=== PATIENT | female | born 1995 | race Caucasian/White ===

== ENCOUNTER 2017-01-17 13:49 | Emergency (ER) | payer MEDICAID, OTHER ==
[~2017-01-17] VITALS: Ht 152.4 cm; Wt 56.0 kg
[~2017-01-17 13:49] MED LIST: IBUP600 PO; PERI8.6T PO
[2017-01-17 13:55] VITALS: BP 116/70; PULSE 104; RESP 20; TEMP 98.9; O2SAT 98
[2017-01-17] MEDS ORDERED: SODIUM CHLOR 0.9% 1000 ML INJ 1,000 ML IV SCH (14:09)
[2017-01-17] MEDS ORDERED: methylPREDNISolone SOD SUCC 125 MG/2 ML VIAL IVP ONE (14:15)
[2017-01-17] MEDS ORDERED: diphenhydrAMINE HCL 50 MG/ML VIAL IVP ONE (14:15)
[2017-01-17] MEDS ORDERED: FAMOTIDINE 20 MG/2 ML VIAL IV PUSH ONE (14:15)
[2017-01-17] MEDS ORDERED: SODIUM CHLORIDE 0.9% FLUSH 10 ML FLUSH IV FLUSH PRN (14:15)
[2017-01-17 14:24] VITALS: RESP 16; O2SAT 100
--- NOTE | 2017-01-17 16:04 | PD ---
HPI Chief Complaint: Allergic/Adverse Reaction Time Seen by Provider: 14:09 Travel History International Travel<30 days: No Contact w/Intl Traveler<30days: No Traveled to known affect area: No History of Present Illness HPI Patient is a 21 year old female who comes in complaining of facial swelling and hives. She says she was eat a fruit salad with multiple berries in it when this started. She has swelling to her eyes and her top lip. She has hives to her arms, neck and trunk that are itchy. She denies any swelling inside of her mouth or any difficulty breathing or swallowing. PFSH Past Medical History Asthma: Yes Cancer: No Cardiovascular Problems: No COPD: No Cerebrovascular Accident: No Diabetes: Yes (HYPOGLYCEMIA) Genitourinary: No Headaches: Yes (migraines) Immune Disorder: No Implanted Vascular Access Dvce: Yes Musculoskeletal: No Neurologic: Yes Psychiatric: No Reproductive: Yes (HPV) Respiratory: Yes (ASTHMA ) Immunizations Current: Yes Migraines: Yes Myocardial Infarction: No Seizures: No Sleep Apnea: No ?: Not LMP: NOW : 1 Para: 1 Past Surgical History Body Medical Devices: Screws in R leg Social History Alcohol Use: No Tobacco Use: No Substance Use: No Allergies-Medications (Allergen,Severity, Reaction): Coded Allergies: Contrast Media (Verified Allergy, Severe, HIVES, 05/12/16) Darvocet-N 100 (Verified Allergy, Severe, HIVES, 01/17/17) Morphine (Verified Allergy, Severe, SWELLING, 01/17/17) Compazine (Verified Allergy, Intermediate, ALTERED MENTAL STATUS, 01/17/17) Latex (Verified Allergy, Intermediate, Rash, 05/12/16) Reported Meds & Prescriptions Reported Meds & Active Scripts Active No Active Prescriptions or Reported Medications Review of Systems Except as stated in HPI: all other systems reviewed are Neg General / Constitutional: No: Fever Eyes: No: Blurred Vision HENT: No: Headaches, Lightheadedness, Sore Throat Cardiovascular: No: Chest Pain or Discomfort Respiratory: No: Shortness of Breath Gastrointestinal: No: Nausea, Vomiting Skin: Positive Rash, Positive Itching, Positive Hives Neurologic: No: Weakness, Dizziness Physical Exam Narrative GENERAL: Awake and alert, in no acute distress. SKIN: Focused skin assessment warm/dry. Urticaria on the arms and neck. HEAD: Atraumatic. Normocephalic. EYES: Pupils equal and round. No scleral icterus. ENT: Mucous membranes pink and moist. Large swelling of the top lip. No swelling of the tongue, tonsils or pharynx. NECK: Trachea midline. No JVD. CARDIOVASCULAR: Regular rate and rhythm. No murmur appreciated. RESPIRATORY: No accessory muscle use. Clear to auscultation. Breath sounds equal bilaterally. MUSCULOSKELETAL: No obvious deformities. No clubbing. No cyanosis. No edema. NEUROLOGICAL: Awake and alert. No obvious cranial nerve deficits. Motor grossly within normal limits. Normal speech. PSYCHIATRIC: Appropriate mood and affect; insight and judgment normal. Data Data Last Documented VS Vital Signs Date Time Temp Pulse Resp B/P Pulse Ox O2 Delivery O2 Flow Rate FiO2 01/17/17 14:24 16 100 Room Air 01/17/17 14:05 88 01/17/17 13:55 98.9 116/70 Orders Ecg Monitoring (01/17/17 14:09) Iv Access Insert/Monitor (01/17/17 14:09) Oximetry (01/17/17 14:09) Diphenhydramine Inj (Benadryl Inj) (01/17/17 14:15) Methylprednisolone So Succ Inj (Solumedr (01/17/17 14:15) Famotidine Inj (Pepcid Inj) (01/17/17 14:15) Sodium Chlor 0.9% 1000 Ml Inj (Ns 1000 M (01/17/17 14:09) Sodium Chloride 0.9% Flush (Ns Flush) (01/17/17 14:15) MDM Medical Decision Making Medical Screen Exam Complete: Yes Emergency Medical Condition: Yes Differential Diagnosis allergic reaction vs anaphylaxis vs atopic dermatitis Narrative Course Patient is a 21 year old female who comes in complaining of hives and swelling of her face. Exam shows large swelling of the top lip and the eyelids as well as urticaria. Patient given Solumedrol, Benadryl, Famotidine. Observed in the ED with improvement of her symptoms. She never had any airway compromise. Will be discharged with prescription for Prednisone. Patient's sister has an allergy to strawberries. I told the patient this is likely what she is reacting to and to avoid them in the future. She is also advised to be careful with other berries. Advised to follow up with a primary care doctor. Advised to continue Benadryl as needed. Advised to return immediately for any worsening symptoms. Diagnosis Primary Impression: Allergic reaction Qualified Code: T78.40XA - Allergic reaction, initial encounter Patient Instructions: General Allergic Reaction (ED), General Instructions Additional Instructions: Avoid berries in the future, especially strawberries. Take Benadryl as needed for itching. Start the steroids tomorrow as you had the first dose today. Return to the ED as needed for any worsening symptoms, especially if you feel any breathing difficulties. Follow up with a primary care doctor. Scripts Famotidine 20 Mg Tab20 Mg PO BID #10 TAB Ref 0 Prov:Katherine Trejo MD 01/17/17 Prednisone 50 Mg Tab50 Mg PO DAILY 4 Days Ref 0 Prov:Katherine Trejo MD 01/17/17 Disposition: 01 DISCHARGE HOME Condition: Stable Katherine Trejo MD January 17, 2017 16:04
[2017-01-17] MEDS ORDERED: FAMO20TA2 PO (16:56)
[2017-01-17] MEDS ORDERED: PRED50 PO (16:56)
== END 2017-01-17 17:08 | disposition home or self-care (01) ==
LOC: NEPD 13:49
DX: T78.40XA Allergy, unspecified, initial encounter (principal); Z87.09 Personal history of other diseases of the respiratory system; Z86.69 Personal history of other diseases of the nervous system and sense organs
CPT/HCPCS: 96361; 96374; 96375; 99284; J1200; J2930; J7030

== ENCOUNTER 2017-01-28 08:45 | Emergency (ER) | payer MEDICAID, OTHER ==
[~2017-01-28] VITALS: Ht 152.4 cm; Wt 44.5 kg
[~2017-01-28 08:45] MED LIST changes: +FAMO20TA2 PO; -IBUP600 PO; -PERI8.6T PO; +PRED50 PO
[2017-01-28 08:46] VITALS: BP 122/81; PULSE 107; RESP 18; TEMP 97.9; O2SAT 99
[2017-01-28 09:10] VITALS: O2SAT 98
[2017-01-28] MEDS ORDERED: SODIUM CHLORIDE 0.9% FLUSH 10 ML FLUSH IV FLUSH PRN (09:15)
--- NOTE | 2017-01-28 09:22 | PD ---
HPI Chief Complaint: Abdominal Pain Time Seen by Provider: 09:16 Travel History International Travel<30 days: No Contact w/Intl Traveler<30days: No Traveled to known affect area: No History of Present Illness HPI 21-year-old female with history of hypoglycemia, previous allergic reactions to different medications and latex, presents to the ER today because she woke up this morning and noticed hives on her legs and body, started having a right sided upper quadrant abdominal pain which she currently states is a 5 out of 10 , nausea, vomiting. She denies any diarrhea, fevers, or other symptoms. She denies any chest pains or shortness of breath. She denies any new medications or new foods. Modifying Factors: None Associated Signs & Symptoms: Right upper quadrant abdominal pains, nausea and vomiting, hives Risk Factors: None PFSH Past Medical History Asthma: Yes Cancer: No Cardiovascular Problems: No COPD: No Cerebrovascular Accident: No Diabetes: Yes (HYPOGLYCEMIA) Patient Takes Glucophage: No Genitourinary: No Headaches: Yes (migraines) Immune Disorder: No Implanted Vascular Access Dvce: Yes Musculoskeletal: No Neurologic: Yes Psychiatric: No Reproductive: Yes (HPV) Respiratory: Yes (ASTHMA ) Immunizations Current: Yes Migraines: Yes Myocardial Infarction: No Seizures: No Sleep Apnea: No ?: Not LMP: ONE WEEK AGO : 1 Para: 1 Past Surgical History Body Medical Devices: Screws in R leg Social History Alcohol Use: Yes (occ) Tobacco Use: Yes (1/2 pack a day) Substance Use: No Allergies-Medications (Allergen,Severity, Reaction): Coded Allergies: Contrast Media (Verified Allergy, Severe, HIVES, 01/28/17) Darvocet-N 100 (Verified Allergy, Severe, HIVES, 01/28/17) Morphine (Verified Allergy, Severe, SWELLING, 01/28/17) Compazine (Verified Allergy, Intermediate, ALTERED MENTAL STATUS, 01/28/17) Latex (Verified Allergy, Intermediate, Rash, 01/28/17) Reported Meds & Prescriptions Reported Meds & Active Scripts Active No Active Prescriptions or Reported Medications Review of Systems Except as stated in HPI: all other systems reviewed are Neg Physical Exam Narrative GENERAL: Well-developed young white female patient in mild distress. Awake and oriented 3. SKIN: Focused skin assessment warm/dry. Notable for urticaria on her legs. HEAD: Atraumatic. Normocephalic. EYES: Pupils equal and round. No scleral icterus. No injection or drainage. ENT: No nasal bleeding or discharge. Mucous membranes pink and moist. NECK: Trachea midline. No JVD. CARDIOVASCULAR: Regular rate and rhythm. No murmur appreciated. RESPIRATORY: No accessory muscle use. Clear to auscultation. Breath sounds equal bilaterally. GASTROINTESTINAL: Abdomen soft, right upper quadrant tenderness without guarding or rebound, right pelvic tenderness, nondistended. Hepatic and splenic margins not palpable. Positive Turner sign. MUSCULOSKELETAL: No obvious deformities. No clubbing. No cyanosis. No edema. NEUROLOGICAL: Awake and alert. No obvious cranial nerve deficits. Motor grossly within normal limits. Normal speech. PSYCHIATRIC: Appropriate mood and affect; insight and judgment normal. Data Data Last Documented VS Vital Signs Date Time Temp Pulse Resp B/P Pulse Ox O2 Delivery O2 Flow Rate FiO2 01/28/17 12:37 98.4 01/28/17 11:39 77 16 104/58 97 Room Air Orders Complete Blood Count With Diff (01/28/17 09:06) Comprehensive Metabolic Panel (01/28/17 09:06) Lipase (01/28/17 09:06) Urinalysis - C+S If Indicated (01/28/17 09:06) Iv Access Insert/Monitor (01/28/17 09:06) Ecg Monitoring (01/28/17 09:06) Oximetry (01/28/17 09:06) Sodium Chloride 0.9% Flush (Ns Flush) (01/28/17 09:15) Ed Urine Pregnancytest Poc (01/28/17 09:06) Sodium Chlor 0.9% 1000 Ml Inj (Ns 1000 M (01/28/17 09:30) Ondansetron Inj (Zofran Inj) (01/28/17 09:30) Us Abdomen Gallbladder (01/28/17 09:16) Diphenhydramine Inj (Benadryl Inj) (01/28/17 09:30) Methylprednisolone So Succ Inj (Solumedr (01/28/17 09:30) Ct Abd/Pel W/O Iv Contrast (01/28/17 11:01) Gc And Chlamydia Pcr (01/28/17 13:01) Wet Prep Profile (01/28/17 13:01) Metronidazole 500 Mg Inj (Flagyl 500 Mg (01/28/17 13:15) Ceftriaxone Inj (Rocephin Inj) (01/28/17 13:15) Doxycycline Inj (Vibramycin Inj) (01/28/17 13:15) Labs Laboratory Tests Test 01/28/17 01/28/17 01/28/17 09:15 09:18 13:07 Urine Color YELLOW Urine Turbidity CLEAR Urine pH 7.0 Urine Specific Baring 1.018 Urine Protein TRACE mg/dL Urine Glucose (UA) NEG mg/dL Urine Ketones NEG mg/dL Urine Occult Blood NEG Urine Nitrite NEG Urine Bilirubin NEG Urine Urobilinogen LESS THAN 2.0 MG/DL Urine Leukocyte Esterase NEG Urine RBC LESS THAN 1 /hpf Urine WBC 2 /hpf Urine Squamous Epithelial 3 /hpf Cells Urine Hyaline Casts 1 /lpf Urine Mucus FEW /lpf Microscopic Urinalysis Comment CULT NOT INDICATED White Blood Count 20.4 TH/MM3 Red Blood Count 4.93 MIL/MM3 Hemoglobin 15.4 GM/DL Hematocrit 45.9 % Mean Corpuscular Volume 93.1 FL Mean Corpuscular Hemoglobin 31.3 PG Mean Corpuscular Hemoglobin 33.6 % Concent Red Cell Distribution Width 13.6 % Platelet Count 279 TH/MM3 Mean Platelet Volume 9.7 FL Neutrophils (%) (Auto) 85.2 % Lymphocytes (%) (Auto) 10.8 % Monocytes (%) (Auto) 3.8 % Eosinophils (%) (Auto) 0.1 % Basophils (%) (Auto) 0.1 % Neutrophils # (Auto) 17.4 TH/MM3 Lymphocytes # (Auto) 2.2 TH/MM3 Monocytes # (Auto) 0.8 TH/MM3 Eosinophils # (Auto) 0.0 TH/MM3 Basophils # (Auto) 0.0 TH/MM3 CBC Comment DIFF FINAL Differential Comment Sodium Level 139 MEQ/L Potassium Level 4.2 MEQ/L Chloride Level 105 MEQ/L Carbon Dioxide Level 26.0 MEQ/L Anion Gap 8 MEQ/L Blood Urea Nitrogen 8 MG/DL Creatinine 0.82 MG/DL Estimat Glomerular Filtration 87 ML/MIN Rate Random Glucose 84 MG/DL Calcium Level 9.3 MG/DL Total Bilirubin 0.6 MG/DL Aspartate Amino Transf 16 U/L (AST/SGOT) Alanine Aminotransferase 21 U/L (ALT/SGPT) Alkaline Phosphatase 68 U/L Total Protein 6.8 GM/DL Albumin 4.0 GM/DL Lipase 103 U/L Clue Cells (Wet Prep) NONE SEEN Vaginal Trichomonas (Wet Prep) NONE SEEN Vaginal Yeast (Wet Prep) NONE SEEN MDM Medical Decision Making Medical Screen Exam Complete: Yes Emergency Medical Condition: Yes Medical Record Reviewed: Yes Interpretation(s) Laboratory Tests Test 01/28/17 01/28/17 09:15 09:18 Urine Mucus FEW /lpf (OCC) White Blood Count 20.4 TH/MM3 (4.0-11.0) Hemoglobin 15.4 GM/DL (11.6-15.3) Neutrophils (%) (Auto) 85.2 % (16.0-70.0) Neutrophils # (Auto) 17.4 TH/MM3 (1.8-7.7) Estimat Glomerular Filtration 87 ML/MIN (>89) Rate Last 24 hours Impressions Gall Bladder Ultrasound 01/28/17915 Signed Impressions: Service Date/Time: Thursday, January 28, 2017 10:33 - CONCLUSION: 1. Stable mild hepatomegaly. 2. Otherwise, unremarkable ultrasound examination of the right upper quadrant. Specifically, no sonographic evidence for cholelithiasis or acute cholecystitis. Gaurav Jacques MD Differential Diagnosis Right upper quadrant abdominal pains, nausea and vomiting, rashallergic reaction versus gastroenteritis versus cholecystitis versus hepatitis versus dehydration versus metabolic issues Narrative Course Ultrasound did not show any signs of significant cholecystitis. Lab work shows significant leukocytosis. CT was ordered for further evaluation and it shows a right adnexal fluid collection. On reevaluation, patient is mildly tender in the right pelvic area and a pelvic exam was done which shows suman pus draining from the cervical os concerning for cervicitis, PID, and suspicion of TOA. IV antibiotics were ordered for the patient. GC cultures were sent. Case was discussed with Dr. Cisneros who is covering for OB ER and she states that the patient can be followed up very closely with Dr. Díaz who is currently on- call today. Further antibiotic treatment with doxycycline and Flagyl recommended. Return for any worsening in pain, fevers, or new symptoms as needed. The plan has been discussed with her and she states understanding. Diagnosis Primary Impression: PID (acute pelvic inflammatory disease) Referrals: Libertad Thomson MD 3 days Med/Other Pt SpecificInfo: Prescription(s) given Scripts Ondansetron Odt (Zofran Odt)4 Mg Tab4 Mg SL Q6HR PRN (Nausea/Vomiting) #7 TAB Ref 0 Prov:Mesha Le MD 01/28/17 Doxycycline Hyclate 100 Mg [id number] Mg PO BID #28 CAP Ref 0 Prov:Mesha Le MD 01/28/17 Metronidazole (Flagyl)500 Mg [id number] Mg PO BID 14 Days Ref 0 Prov:Mesha Le MD 01/28/17 Disposition: 01 DISCHARGE HOME Condition: Stable Mesha Le MD Jan 28, 2017 09:22
[2017-01-28] MEDS ORDERED: SODIUM CHLOR 0.9% 1000 ML INJ 1,000 ML IV ONE (09:30)
[2017-01-28] MEDS ORDERED: ONDANSETRON HCL 4 MG/2 ML VIAL IV PUSH ONE (09:30)
[2017-01-28] MEDS ORDERED: methylPREDNISolone SOD SUCC 125 MG/2 ML VIAL IV PUSH ONE (09:30)
[2017-01-28] MEDS ORDERED: diphenhydrAMINE HCL 50 MG/ML VIAL IV PUSH ONE (09:30)
[2017-01-28 09:44] LABS: AUTOMATED NEUTROPHIL # 17.4 TH/MM3 (1.8-7.7); BASOPHIL % 0.1 % (0.0-2.0); EOSINOPHIL % 0.1 % (0.0-4.0); HEMATOCRIT 45.9 % (35.0-46.0); HEMO FLAGS DIFF FINAL; LYMPH % 10.8 % (9.0-44.0); LYMPHOCYTE # 2.2 TH/MM3 (1.0-4.8); MEAN CELL VOLUME 93.1 FL (80.0-100.0); MEAN CORPUSCULAR HEMOGLOBIN 31.3 PG (27.0-34.0); MEAN CORPUSCULAR HGB CONC 33.6 % (32.0-36.0); MONO % 3.8 % (0.0-8.0); NEUT % 85.2 % (16.0-70.0); PLATELET COUNT 279 TH/MM3 (150-450); RED BLOOD COUNT 4.93 MIL/MM3 (4.00-5.30); RED CELL DISTRIBUTION WIDTH 13.6 % (11.6-17.2); WHITE BLOOD COUNT 20.4 TH/MM3 (4.0-11.0)
[2017-01-28 09:49] LABS: BLOOD, URINE NEG (NEG); COMMENT (UR) CULT NOT INDICATED; CULTURE IF INDICATED CULT NOT INDICATED; GLUCOSE,URINE NEG (NEG); HYALINE CAST, URINE 1 /lpf (RARE); KETONE, URINE NEG (NEG); MUCUS URINE FEW /lpf (OCC); NITRITE,URINE NEG (NEG); SQUAMOUS EPITHELIAL CELL URINE 3 /hpf (0-5); URINE COLOR YELLOW (YELLW/STRAW)
[2017-01-28 09:53] LABS: ANION GAP 8 MEQ/L (5-15); AST (GOT) 16 U/L (15-37); BLOOD UREA NITROGEN 8 MG/DL (7-18); CHLORIDE 105 MEQ/L (98-107); GLOMERULAR FILTRATION RATE 87 ML/MIN (>89); POTASSIUM 4.2 MEQ/L (3.5-5.1); SODIUM (NA) 139 MEQ/L (136-145)
[2017-01-28 09:55] LABS: ALT (GPT) 21 U/L (10-53)
[2017-01-28 09:56] LABS: ALKALINE PHOSPHATASE 68 U/L (45-117); TOTAL BILIRUBIN ADULT 0.6 MG/DL (0.2-1.0)
--- NOTE | 2017-01-28 10:57 | RADRPT ---
EXAM DATE/TIME: 01/28/2017 10:33 [facility] COMPARISON: US ABDOMEN - GALLBLADDER, March 21, 2016, 23:26. INDICATIONS : Right upper quadrant pain. MEDICAL HISTORY : HPV. Right upper quadrant pain. Diabetes. SURGICAL HISTORY : Bilateral knee surgery. ENCOUNTER: Subsequent ACUITY: 1 day PAIN SCORE: 4/10 LOCATION: Right upper quadrant MEASUREMENTS: LIVER: 18.1 cm length COMMON DUCT: 4 mm RIGHT KIDNEY: 10.5 x 3.7 x 4.3 cm FINDINGS: LIVER: Normal echotexture without focal lesion or ductal dilatation. COMMON DUCT: No intraluminal mass or stone visualized. GALLBLADDER: Contains no stones, demonstrates no wall thickening or pericholecystic fluid. PANCREAS: The visualized portions are within normal limits. RIGHT KIDNEY: No evidence of hydronephrosis, stone, or mass. CONCLUSION: 1. Stable mild hepatomegaly. 2. Otherwise, unremarkable ultrasound examination of the right upper quadrant. Specifically, no sonog raphic evidence for cholelithiasis or acute cholecystitis. Gaurav Jacques MD on January 28, 2017 at 10:53 Board Certified Radiologist. This report was verified electronically.
[2017-01-28 11:39] VITALS: BP 104/58; PULSE 77; RESP 16; O2SAT 97
--- NOTE | 2017-01-28 12:09 | RADRPT ---
EXAM DATE/TIME: 01/28/2017 11:29 [facility] COMPARISON: CT ABDOMEN & PELVIS W/O CONTRAST, March 21, 2016, 21:09. INDICATIONS : Right lower quadrant pain; nausea and vomitting ORAL CONTRAST: No oral contrast ingested. RADIATION DOSE: 9.96 CTDIvol (mGy) MEDICAL HISTORY : Diabetes mellitus type 1. SURGICAL HISTORY : None. ENCOUNTER: Initial ACUITY: 1 day PAIN SCALE: 3/10 LOCATION: Right lower quadrant TECHNIQUE: Volumetric scanning of the abdomen and pelvis was performed. Using automated exposure control and ad justment of the mA and/or kV according to patient size, radiation dose was kept as low as reasonably achievable to obtain optimal diagnostic quality images. FINDINGS: The lung bases are clear. Liver, spleen, pancreas and adrenals are unremarkable. There are no renal stones identified. There is no ascites or adenopathy. Bladder is prominent. Endometrium is prominent in a normal size uterus. There is no left adnexal ma ss. There is a 2 cm right adnexal mass. There is no free fluid in the cul-de-sac. Stool is seen throughout the colon. CONCLUSION: 1. There is no free air or obstruction. Stool is seen throughout the colon in a nonspecific fashion. 2. I don't see inflammatory changes. 3. Lack of intravenous oral contrast makes detection of subtle inflammatory processes difficult. 4. A 2.2 cm cystic mass right adnexal region without free fluid. Jordin Wolff MD FACR on January 28, 2017 at 11:42 Board Certified Radiologist. This report was verified electronically.
[2017-01-28 12:37] VITALS: TEMP 98.4
[2017-01-28] MEDS ORDERED: cefTRIAXone INJ 1,000 MG in SODIUM CHLORIDE 0.9% INJ 100 ML IV ONE (13:15)
[2017-01-28] MEDS ORDERED: DOXYCYCLINE INJ 100 MG in SODIUM CHLORIDE 0.9% INJ 100 ML IV ONE (13:15)
[2017-01-28] MEDS ORDERED: metroNIDAZOLE 500 MG INJ 100 ML IV ONE (13:15)
[2017-01-28] MEDS ORDERED: DOXY100C PO (14:07)
[2017-01-28] MEDS ORDERED: ZOFR4TAB3 SL (14:07)
[2017-01-28] MEDS ORDERED: METR-1 PO (14:07)
[2017-01-28 17:39] LABS: CHLAMYDIA PCR NOT DETECTED (NOT DETECT); NEISSERIA PCR NOT DETECTED (NOT DETECT)
== END 2017-01-28 15:06 | disposition home or self-care (01) ==
LOC: NEPE 08:45
DX: N73.9 Female pelvic inflammatory disease, unspecified (principal); R11.2 Nausea with vomiting, unspecified; L23.9 Allergic contact dermatitis, unspecified cause; J45.909 Unspecified asthma, uncomplicated; E11.649 Type 2 diabetes mellitus with hypoglycemia without coma; Z72.0 Tobacco use
CPT/HCPCS: 74176; 76705; 80053; 81001; 83690; 84703; 85025; 87210; 87491; 87591; 96361; 96365; 96367; 96368; 96375; 99285; J0696; J1200; J2405; J2930; J7030

== ENCOUNTER 2017-02-11 09:42 | Emergency (ER) | payer MEDICAID ==
[~2017-02-11] VITALS: Ht 165.1 cm; Wt 44.5 kg
[~2017-02-11 09:42] MED LIST changes: +DOXY100C PO; -FAMO20TA2 PO; +METR-1 PO; -PRED50 PO; +ZOFR4TAB3 SL
[2017-02-11 09:44] VITALS: BP 126/80; PULSE 139; RESP 14; TEMP 98.8; O2SAT 98
[2017-02-11] MEDS ORDERED: FAMOTIDINE 20 MG/2 ML VIAL IV PUSH ONE (10:30)
[2017-02-11] MEDS ORDERED: methylPREDNISolone SOD SUCC 125 MG/2 ML VIAL IVP ONE (10:30)
[2017-02-11] MEDS ORDERED: diphenhydrAMINE HCL 50 MG/ML VIAL IVP ONE (10:30)
[2017-02-11] MEDS ORDERED: SODIUM CHLORIDE 0.9% FLUSH 10 ML FLUSH IV FLUSH PRN (10:30)
[2017-02-11] MEDS ORDERED: EPINEPHrine HCL (1:1000) 1 MG/ML VIAL IM ONE (10:30)
--- NOTE | 2017-02-11 10:30 | PD ---
HPI Chief Complaint: Allergic/Adverse Reaction Time Seen by Provider: 10:12 Travel History International Travel<30 days: No Contact w/Intl Traveler<30days: No Traveled to known affect area: No History of Present Illness HPI 21-year-old female complains of itching rash on the face trunk and extremity. Patient states that she has intermittent itching rash all over the body for the past month. Patient does not know the source of allergic reaction. Patient denies any difficulty in swallowing. Patient denies any chest pain or shortness of breath. Patient states that she had more swelling of the face this morning. Patient denies any abdominal pain. Patient denies any nausea vomiting diarrhea. PFSH Past Medical History Asthma: Yes Cancer: No Cardiovascular Problems: No COPD: No Cerebrovascular Accident: No Diabetes: Yes (HYPOGLYCEMIA) Patient Takes Glucophage: No Diminished Hearing: No Genitourinary: No Headaches: Yes (migraines) Immune Disorder: No Implanted Vascular Access Dvce: Yes Musculoskeletal: No Neurologic: Yes Psychiatric: No Reproductive: Yes (HPV) Respiratory: Yes (ASTHMA ) Immunizations Current: Yes Migraines: Yes Myocardial Infarction: No Seizures: No Sleep Apnea: No Tetanus Vaccination: < 5 Years ?: Not LMP: 01/28/17 : 1 Para: 1 Past Surgical History Body Medical Devices: Screws in R leg Social History Alcohol Use: Yes (occ) Tobacco Use: Yes (1/2 pack a day) Substance Use: No Allergies-Medications (Allergen,Severity, Reaction): Coded Allergies: Contrast Media (Verified Allergy, Severe, HIVES, 02/11/17) Darvocet-N 100 (Verified Allergy, Severe, HIVES, 02/11/17) Morphine (Verified Allergy, Severe, SWELLING, 02/11/17) Compazine (Verified Allergy, Intermediate, ALTERED MENTAL STATUS, 02/11/17) Latex (Verified Allergy, Intermediate, Rash, 02/11/17) Reported Meds & Prescriptions Reported Meds & Active Scripts Active No Active Prescriptions or Reported Medications Review of Systems General / Constitutional: No: Fever Eyes: No: Visual changes HENT: No: Headaches Cardiovascular: No: Chest Pain or Discomfort Respiratory: No: Shortness of Breath Gastrointestinal: No: Abdominal Pain Genitourinary: No: Dysuria Musculoskeletal: No: Pain Skin: No Rash Neurologic: No: Weakness Psychiatric: No: Depression Endocrine: No: Polydipsia Hematologic/Lymphatic: No: Easy Bruising Physical Exam Narrative GENERAL: Well-nourished, well-developed patient. SKIN: Focused skin assessment warm/dry. Patient has diffuse hives over the face , trunk, extremity. HEAD: Normocephalic. EYES: No scleral icterus. No injection or drainage. NECK: Supple, trachea midline. No JVD or lymphadenopathy. CARDIOVASCULAR: Regular rate and rhythm without murmurs, gallops, or rubs. RESPIRATORY: Breath sounds equal bilaterally. No accessory muscle use. GASTROINTESTINAL: Abdomen soft, non-tender, nondistended. MUSCULOSKELETAL: No cyanosis, or edema. BACK: Nontender without obvious deformity. No CVA tenderness. Neurologic exam normal. Data Data Last Documented VS Vital Signs Date Time Temp Pulse Resp B/P Pulse Ox O2 Delivery O2 Flow Rate FiO2 02/11/17 09:44 98.8 139 14 126/80 98 Orders Ecg Monitoring (02/11/17 10:20) Iv Access Insert/Monitor (02/11/17 10:20) Oximetry (02/11/17 10:20) Diphenhydramine Inj (Benadryl Inj) (02/11/17 10:30) Methylprednisolone So Succ Inj (Solumedr (02/11/17 10:30) Famotidine Inj (Pepcid Inj) (02/11/17 10:30) Sodium Chloride 0.9% Flush (Ns Flush) (02/11/17 10:30) Epinephrine (1:1000) Inj (Adrenalin (1:1 (02/11/17 10:30) MDM Medical Decision Making Medical Screen Exam Complete: Yes Emergency Medical Condition: Yes Differential Diagnosis Differential diagnosis including allergic reaction, anaphylactoid reaction Narrative Course 21-year-old female with diffuse itching rash all over the body including face, trunk, extremity. Epinephrine 0.3 cc IM. Solu-Medrol 125 mg IV. Benadryl 50 mg IV. Pepcid 20 mg IV. 11:07 AM. Patient's feeling much better. Rash is resolving. Diagnosis Primary Impression: Allergic reaction Qualified Code: T78.40XA - Allergic reaction, initial encounter Patient Instructions: General Instructions Additional Instructions: Take medications as directed. Follow-up with local physician and movie extra. Return immediately if his shortness of breath, problems with swallowing or worse. Med/Other Pt SpecificInfo: Prescription(s) given Scripts Ranitidine (Zantac)300 Mg [id number] Mg PO DAILY #30 TAB Ref 0 Prov:Sky Ladd MD 02/11/17 Cetirizine HCl (Zyrtec)10 Mg Tablet1 Tab PO DAILY #30 Prov:Sky Ladd MD 02/11/17 Prednisone 20 Mg Tab20 Mg PO BID #14 TAB Prov:Sky Ladd MD 02/11/17 Disposition: 01 DISCHARGE HOME Condition: Stable Sky Ladd MD Feb 11, 2017 10:30
[2017-02-11] MEDS ORDERED: PRED20 PO (11:09)
[2017-02-11] MEDS ORDERED: CETI-1 PO (11:09)
[2017-02-11] MEDS ORDERED: ZANT300T PO (11:09)
[2017-02-11 11:47] VITALS: BP 121/62; O2SAT 98
== END 2017-02-11 11:49 | disposition home or self-care (01) ==
LOC: NEPD 09:42
DX: T78.40XA Allergy, unspecified, initial encounter (principal); R21 Rash and other nonspecific skin eruption; F17.200 Nicotine dependence, unspecified, uncomplicated; J45.909 Unspecified asthma, uncomplicated; E11.649 Type 2 diabetes mellitus with hypoglycemia without coma; Z88.5 Allergy status to narcotic agent; Z88.8 Allergy status to other drugs, medicaments and biological substances
CPT/HCPCS: 96372; 96374; 96375; 99284; J0171; J1200; J2930

== ENCOUNTER 2017-07-20 15:36 | Emergency (ER) | payer MEDICAID ==
[~2017-07-20] VITALS: Ht 162.6 cm; Wt 44.0 kg
[~2017-07-20 15:36] MED LIST changes: +CETI-1 PO; -DOXY100C PO; -METR-1 PO; +PRED20 PO; +ZANT300T PO; -ZOFR4TAB3 SL
[2017-07-20 15:51] VITALS: BP 112/75; PULSE 110; RESP 16; TEMP 98.4; O2SAT 98
--- NOTE | 2017-07-20 16:37 | PD ---
HPI Chief Complaint: Abdominal Pain Time Seen by Provider: 16:27 Travel History International Travel<30 days: No Contact w/Intl Traveler<30days: No Traveled to known affect area: No History of Present Illness HPI 22-year-old female came to the emergency room with history of right upper quadrant abdominal pain that started this morning. Patient describes the pain to be severe. It radiates to the epigastric area. It has made her nauseous and she has been vomiting. No history of fever or chills. Patient says she hasn't been able to eat anything since this morning because of the pain. She takes says the pain is as bad as her labor pain which was 16 months ago. It is 10 out of 10. Patient looked uncomfortable. Patient was tachycardic in triage. [facility] Past Medical History Narrative Medical List of her past medical, surgical, social and family history is reviewed from the nursing note. Asthma: Yes Cancer: No Cardiovascular Problems: No COPD: No Cerebrovascular Accident: No Diabetes: Yes (HYPOGLYCEMIA) Patient Takes Glucophage: No Diminished Hearing: No Genitourinary: No Headaches: Yes (migraines) Immune Disorder: No Implanted Vascular Access Dvce: Yes Medical other: Yes (HELP [employer]DR[employer]) Musculoskeletal: No Neurologic: Yes Psychiatric: No Reproductive: Yes (HPV) Respiratory: Yes (ASTHMA ) Immunizations Current: Yes Migraines: Yes Myocardial Infarction: No Seizures: No Sleep Apnea: No Tetanus Vaccination: < 5 Years Influenza Vaccination: Yes ?: Unknown LMP: 07/05/2017 : 1 Para: 1 Past Surgical History Body Medical Devices: Screws in R leg Social History Alcohol Use: Yes (occ) Tobacco Use: Yes (1/4 pack a day) Substance Use: No Allergies-Medications (Allergen,Severity, Reaction): Coded Allergies: acetaminophen (Unverified Allergy, Severe, HIVES, 07/20/17) diatrizoate meglumine (Unverified Allergy, Severe, HIVES, 07/20/17) gadobenic acid (Unverified Allergy, Severe, HIVES, 07/20/17) gadodiamide (Unverified Allergy, Severe, HIVES, 07/20/17) gadoteridol (Unverified Allergy, Severe, HIVES, 07/20/17) iodixanol (Unverified Allergy, Severe, HIVES, 07/20/17) iohexol (Unverified Allergy, Severe, HIVES, 07/20/17) morphine (Unverified Allergy, Severe, SWELLING, 07/20/17) propoxyphene (Unverified Allergy, Severe, HIVES, 07/20/17) latex (Unverified Allergy, Intermediate, Rash, 07/20/17) prochlorperazine (Unverified Allergy, Intermediate, ALTERED MENTAL STATUS , 07/20/17) Comments List of her allergies reviewed from the nursing note. Reported Meds & Prescriptions Reported Meds & Active Scripts Active Omeprazole 20 Mg Tab 20 Mg PO DAILY Macrobid (Nitrofurantoin Monoh/Nitrofur Macro) 100 Mg Cap 100 Mg PO BID 5 Days Narrative Medication List of her home medications reviewed from the nursing note. Review of Systems Except as stated in HPI: all other systems reviewed are Neg Gastrointestinal: Positive: Nausea, Abdominal Pain Physical Exam Narrative GENERAL: Awake, alert, moderate distress SKIN: Focused skin assessment warm/dry. HEAD: Atraumatic. Normocephalic. EYES: Pupils equal and round. No scleral icterus. No injection or drainage. ENT: No nasal bleeding or discharge. Mucous membranes pink and moist. Poor dentition NECK: Trachea midline. No JVD. CARDIOVASCULAR: Regular rate and rhythm. No murmur appreciated. RESPIRATORY: No accessory muscle use. Clear to auscultation. Breath sounds equal bilaterally. GASTROINTESTINAL: Abdomen soft, tender in the right upper quadrant and epigastric area, nondistended. Hepatic and splenic margins not palpable. MUSCULOSKELETAL: No obvious deformities. No clubbing. No cyanosis. No edema. NEUROLOGICAL: Awake and alert. No obvious cranial nerve deficits. Motor grossly within normal limits. Normal speech. PSYCHIATRIC: Appropriate mood and affect; insight and judgment normal. Data Data Last Documented VS Orders Orders Ed Urine Pregnancytest Poc (07/20/17 16:34) Urinalysis - C+S If Indicated (07/20/17 16:34) Complete Blood Count With Diff (07/20/17 16:42) Comprehensive Metabolic Panel (07/20/17 16:42) Lipase (07/20/17 16:42) Us Abdomen Gallbladder (07/20/17 ) Iv Access Insert/Monitor (07/20/17 16:42) Ecg Monitoring (07/20/17 16:42) Oximetry (07/20/17 16:42) Ondansetron Inj (Zofran Inj) (07/20/17 16:45) Sodium Chloride 0.9% Flush (Ns Flush) (07/20/17 16:45) Ketorolac Inj (Toradol Inj) (07/20/17 17:00) Urine Culture (07/20/17 16:55) Sodium Chlor 0.9% 1000 Ml Inj (Ns 1000 M (07/20/17 17:30) Sodium Chlor 0.9% 1000 Ml Inj (Ns 1000 M (07/20/17 17:30) Potassium Chloride (Kcl) (07/20/17 18:00) Nitrofurantoin Monohyd Macrocr (Macrobid (07/20/17 18:45) Pantoprazole Inj (Protonix Inj) (07/20/17 19:00) Ed Discharge Order (07/20/17 18:53) Labs Laboratory Tests Test 07/20/17 16:55 White Blood Count 10.6 TH/MM3 Red Blood Count 4.54 MIL/MM3 Hemoglobin 14.4 GM/DL Hematocrit 42.3 % Mean Corpuscular Volume 93.2 FL Mean Corpuscular Hemoglobin 31.8 PG Mean Corpuscular Hemoglobin Concent 34.1 % Red Cell Distribution Width 12.9 % Platelet Count 185 TH/MM3 Mean Platelet Volume 9.1 FL Neutrophils (%) (Auto) 86.8 % Lymphocytes (%) (Auto) 5.2 % Monocytes (%) (Auto) 3.8 % Eosinophils (%) (Auto) 0.3 % Basophils (%) (Auto) 3.9 % Neutrophils # (Auto) 9.2 TH/MM3 Lymphocytes # (Auto) 0.6 TH/MM3 Monocytes # (Auto) 0.4 TH/MM3 Eosinophils # (Auto) 0.0 TH/MM3 Basophils # (Auto) 0.4 TH/MM3 CBC Comment DIFF FINAL Differential Comment Urine Color YELLOW Urine Turbidity CLOUDY Urine pH 6.0 Urine Specific [place] 1.025 Urine Protein TRACE mg/dL Urine Glucose (UA) NEG mg/dL Urine Ketones 80 OR GREATER mg/dL Urine Occult Blood NEG Urine Nitrite NEG Urine Bilirubin NEG Urine Leukocyte Esterase NEG Urine RBC 0-3 /hpf Urine WBC 9-14 /hpf Urine Squamous Epithelial Cells > 8 /hpf Urine Bacteria RARE /hpf Microscopic Urinalysis Comment CULTURE INDICATED Blood Urea Nitrogen 11 MG/DL Creatinine 0.71 MG/DL Random Glucose 90 MG/DL Total Protein 7.0 GM/DL Albumin 4.1 GM/DL Calcium Level 8.9 MG/DL Alkaline Phosphatase 64 U/L Aspartate Amino Transf (AST/SGOT) 12 U/L Alanine Aminotransferase (ALT/SGPT) 18 U/L Total Bilirubin 0.8 MG/DL Sodium Level 140 MEQ/L Potassium Level 3.4 MEQ/L Chloride Level 105 MEQ/L Carbon Dioxide Level 24.2 MEQ/L Anion Gap 11 MEQ/L Estimat Glomerular Filtration Rate 102 ML/MIN Lipase 97 U/L [facility] Medical Decision Making Medical Screen Exam Complete: Yes Emergency Medical Condition: Yes Medical Record Reviewed: Yes Differential Diagnosis Acute cholecystitis, acute gastritis, acute pancreatitis Narrative Course 6:44 PM blood test results of back and within acceptable limits. UA suggestive of significant ketonuria and UTI. I gave HER-2 liters of IV fluid bolus and by mouth Macrobid. I will also give her IV Protonix. Patient will be discharged home on prescription for Protonix and Macrobid. I was unable to locate the gallbladder on bedside ultrasound and that ordered for a formal ultrasound. Awaiting for the report. If it is negative, patient will be DC home. Procedures EKG Prior to Arrival: No Diagnosis Primary Impression: Acute gastritis Qualified Codes: K29.00 - Acute gastritis without bleeding Additional Impressions: Abdominal pain Qualified Codes: R10.13 - Epigastric pain UTI (urinary tract infection) Qualified Codes: N39.0 - Urinary tract infection, site not specified Dehydration Ketonuria Referrals: Primary Care Physician Additional Instructions: Please return to the ER if the condition worsens or any other new concerns. Take the medications as per the prescription direction. You should eat bland diet for the next 24-48 hours which should not have high acid content or high fatty content. Follow-up with your primary care. Med/Other Pt SpecificInfo: Prescription(s) given Scripts Omeprazole (Omeprazole) 20 Mg Tab 20 MG PO DAILY, #30 TAB 0 Refills Prov: Ardián Hammond MD 07/20/17 Nitrofurantoin Monohydrate Macrocrystals (Macrobid) 100 Mg Cap 100 MG PO BID for Infection for 5 Days, #10 CAP 0 Refills Prov: Adrián Hammond MD 07/20/17 Disposition: 01 DISCHARGE HOME Condition: Stable Adrián Hammond MD Jul 20, 2017 16:37
[2017-07-20] MEDS ORDERED: ONDANSETRON HCL 4 MG/2 ML VIAL IVP ONE (16:45)
[2017-07-20] MEDS ORDERED: SODIUM CHLORIDE 0.9% FLUSH 10 ML FLUSH IV FLUSH PRN (16:45)
[2017-07-20] MEDS ORDERED: KETOROLAC TROMETHAMINE 30 MG/ML (IVP) VIAL IV PUSH ONE (17:00)
[2017-07-20 17:05] LABS: AUTOMATED NEUTROPHIL # 9.2 TH/MM3 (1.8-7.7); BASOPHIL # 0.4 TH/MM3 (0-0.2); BASOPHIL % 3.9 % (0.0-2.0); BLOOD, URINE NEG (NEG); EOSINOPHIL % 0.3 % (0.0-4.0); GLUCOSE,URINE NEG (NEG); HEMATOCRIT 42.3 % (35.0-46.0); HEMO FLAGS DIFF FINAL; KETONE, URINE 80 OR GREATER mg/dL (NEG); LYMPH % 5.2 % (9.0-44.0); LYMPHOCYTE # 0.6 TH/MM3 (1.0-4.8); MEAN CELL VOLUME 93.2 FL (80.0-100.0); MEAN CORPUSCULAR HEMOGLOBIN 31.8 PG (27.0-34.0); MEAN CORPUSCULAR HGB CONC 34.1 % (32.0-36.0); MONO % 3.8 % (0.0-8.0); NEUT % 86.8 % (16.0-70.0); NITRITE,URINE NEG (NEG); PLATELET COUNT 185 TH/MM3 (150-450); RED BLOOD COUNT 4.54 MIL/MM3 (4.00-5.30); RED CELL DISTRIBUTION WIDTH 12.9 % (11.6-17.2); WHITE BLOOD COUNT 10.6 TH/MM3 (4.0-11.0)
[2017-07-20 17:08] VITALS: O2SAT 98
[2017-07-20 17:11] LABS: URINE COLOR YELLOW (YELLW/STRAW)
[2017-07-20 17:13] LABS: BACTERIA, URINE RARE /hpf; COMMENT (UR) CULTURE INDICATED; CULTURE IF INDICATED CULTURE INDICATED; RBC, URINE 0-3 /hpf (0-3); SQUAMOUS EPITHELIAL CELL URINE > 8 /hpf (0-5)
[2017-07-20 17:25] LABS: CHLORIDE 105 MEQ/L (98-107); POTASSIUM 3.4 MEQ/L (3.5-5.1); SODIUM (NA) 140 MEQ/L (136-145)
[2017-07-20 17:29] LABS: ANION GAP 11 MEQ/L (5-15); BICARBONATE 24.2 MEQ/L (21.0-32.0); BLOOD UREA NITROGEN 11 MG/DL (7-18)
[2017-07-20] MEDS ORDERED: SODIUM CHLOR 0.9% 1000 ML INJ 1,000 ML IV ONE ×2 (17:30)
[2017-07-20 17:31] LABS: ALT (GPT) 18 U/L (10-53); AST (GOT) 12 U/L (15-37); GLOMERULAR FILTRATION RATE 102 ML/MIN (>89)
[2017-07-20 17:33] LABS: TOTAL BILIRUBIN ADULT 0.8 MG/DL (0.2-1.0)
[2017-07-20 17:34] LABS: ALKALINE PHOSPHATASE 64 U/L (45-117)
[2017-07-20] MEDS ORDERED: POTASSIUM CHLORIDE 20 MEQ CONTROLLED RELEASE TAB PO ONE (18:00)
[2017-07-20] MEDS ORDERED: NITROFURANTOIN MONOHYD MACROCR 100 MG CAP PO ONE (18:45)
[2017-07-20] MEDS ORDERED: MACR100C2 PO (18:48)
[2017-07-20] MEDS ORDERED: OMEP20TA93 PO (18:48)
--- NOTE | 2017-07-20 18:52 | RADRPT ---
EXAM DATE/TIME: 07/20/2017 17:49 [facility] COMPARISON: US ABDOMEN - GALLBLADDER, January 28, 2017, 10:33. INDICATIONS : Right upper quadrant pain. MEDICAL HISTORY : Migraines. Asthma. HPV. SURGICAL HISTORY : Bilateral knee surgery. ENCOUNTER: Subsequent ACUITY: 1 day PAIN SCORE: 4/10 LOCATION: Right upper quadrant MEASUREMENTS: LIVER: 17.0 cm length COMMON DUCT: 5 mm RIGHT KIDNEY: 10.5 x 3.4 x 4.8 cm FINDINGS: LIVER: Normal echotexture without focal lesion or ductal dilatation. COMMON DUCT: No intraluminal mass or stone visualized. GALLBLADDER: Contains no stones, demonstrates no wall thickening or pericholecystic fluid. PANCREAS: The visualized portions are within normal limits. RIGHT KIDNEY: No evidence of hydronephrosis, stone, or mass. CONCLUSION: Negative exam. Etienne Castañeda MD on July 20, 2017 at 18:48 Board Certified Radiologist. This report was verified electronically.
[2017-07-20] MEDS ORDERED: PANTOPRAZOLE SODIUM 40 MG VIAL IV PUSH ONE (19:00)
[2017-07-20 19:16] VITALS: BP 126/61
== END 2017-07-20 19:17 | disposition home or self-care (01) ==
LOC: PHED 15:36
DX: K29.00 Acute gastritis without bleeding (principal); R10.13 Epigastric pain; N39.0 Urinary tract infection, site not specified; E86.0 Dehydration; R82.4 Acetonuria; R00.0 Tachycardia, unspecified; E11.9 Type 2 diabetes mellitus without complications; F17.200 Nicotine dependence, unspecified, uncomplicated; Z87.09 Personal history of other diseases of the respiratory system; Z86.69 Personal history of other diseases of the nervous system and sense organs; Z87.42 Personal history of other diseases of the female genital tract
CPT/HCPCS: 76705; 80053; 81001; 83690; 84703; 85025; 87086; 96361; 96374; 96375; 99285; J1885; J2405; J7030

== ENCOUNTER 2017-10-17 15:26 | Emergency (ER) | payer MEDICAID ==
[~2017-10-17] VITALS: Ht 162.6 cm; Wt 45.8 kg
[~2017-10-17 15:26] MED LIST changes: -CETI-1 PO; +MACR100C2 PO; +OMEP20TA93 PO; -PRED20 PO; -ZANT300T PO
[2017-10-17 15:39] VITALS: BP 115/62; PULSE 72; RESP 16; TEMP 98.5; O2SAT 97
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
== END 2017-10-17 19:00 | disposition home or self-care (01) ==
LOC: PHED 15:26 → PHEFT 19:00
DX: S20.211A Contusion of right front wall of thorax, initial encounter (principal); E11.9 Type 2 diabetes mellitus without complications; J45.909 Unspecified asthma, uncomplicated; W50.1XXA Accidental kick by another person, initial encounter; Z88.5 Allergy status to narcotic agent; Z88.8 Allergy status to other drugs, medicaments and biological substances
CPT/HCPCS: 71101; 99283